=== PATIENT | female | born 2000 | race Caucasian/White ===

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

== ENCOUNTER 2019-01-09 18:38 | Emergency (ER) | payer OTHER ==
--- NOTE | 2019-01-09 19:13 | ED ---
General Adult HPI - General Chief complaint: Extremity Injury, Lower Stated complaint: Hip pain Time Seen by Provider: 01/09/19 18:51 Source: patient, RN notes reviewed Mode of arrival: ambulatory Limitations: no limitations - History of Present Illness Initial comments: 18-year-old female presents to the emergency department for a chief complaint of right hip pain times one day. Patient states she fell 4 days ago onto the right hip. Patient states this may have been what caused her pain. She denies any recent illnesses. Patient states it is somewhat painful to bear weight on the right hip. She states she did walk to school today. Denies any fevers or chills. Denies any other injuries. Denies any back pain. Denies any shooting pain down the right leg or decreased sensation in the right leg. No weakness noted in the bilateral lower extremities. No saddle anesthesia or bladder or bowel changes.Patient has no other complaints at this time including shortness of breath, chest pain, abdominal pain, nausea or vomiting, headache, or visual changes. - Related Data Home Medications Medication Instructions Recorded Confirmed No Known Home Medications 01/16/18 01/16/18 Allergies Allergy/AdvReac Type Severity Reaction Status Date / Time No Known Allergies Allergy Verified 01/09/19 18:46 Review of Systems ROS Statement: Those systems with pertinent positive or pertinent negative responses have been documented in the HPI. ROS Other: All systems not noted in ROS Statement are negative. Past Medical History Additional Past Medical History / Comment(s): thai hip disorder History of Any Multi-Drug Resistant Organisms: None Reported Past Surgical History: Orthopedic Surgery Additional Past Surgical History / Comment(s): thai hip surgery Past Psychological History: No Psychological Hx Reported Smoking Status: Never smoker Past Alcohol Use History: None Reported Past Drug Use History: None Reported General Exam Limitations: no limitations General appearance: alert, in no apparent distress Head exam: Present: atraumatic, normocephalic, normal inspection Eye exam: Present: normal appearance, PERRL, EOMI. Absent: scleral icterus, conjunctival injection, periorbital swelling ENT exam: Present: normal exam, mucous membranes moist Neck exam: Present: normal inspection, full ROM. Absent: tenderness, meningismus, lymphadenopathy Respiratory exam: Present: normal lung sounds bilaterally. Absent: respiratory distress, wheezes, rales, rhonchi, stridor Cardiovascular Exam: Present: regular rate, normal rhythm, normal heart sounds. Absent: systolic murmur, diastolic murmur, rubs, gallop, clicks Extremities exam: Present: normal capillary refill (Normal capillary refill less than 2 seconds and DP pulse 2+ in the right lower extremity), other ( Sensation intact in the right lower extremity). Absent: full ROM (Flexion both passive and active to 100 in the right hip. Extension to neutral position. Patient is able to externally rotate about 15. The rest of the right lower external he has full range of motion.), calf tenderness (No tenderness throughout the calf.) Course Vital Signs 01/09/19 18:44 Temperature 97.9 F Pulse Rate 81 Respiratory 16 Rate Blood Pressure 129/83 O2 Sat by Pulse 98 Oximetry Medical Decision Making - Medical Decision Making 18-year-old female presents to the emergency department for a chief complaint of right hip pain. This has been ongoing since yesterday. Patient did fall earlier this week. On exam patient is good range of motion of the right hip with 110 of flexion and intact external rotation. Neurovascular intact. X- ray shows old hip dysplasia without any acute abnormality. No change. Urine was ordered for hCG which was negative. Patient is on her period which accounts for the red blood cells. At this time no fevers, no recent illnesses. No concern for infected joint. Patient will follow up with primary care in 1- 2 days. She will return here if she has any worsening symptoms. Educated on rice therapy. - Lab Data Lab Results 01/09/19 01/09/19 Range/Units 19:04 19:04 Urine Color Light Yellow Urine Appearance Clear (Clear) Urine pH 6.0 (5.0-8.0) Ur Specific [place] 1.007 (1.001-1.035) Urine Protein Negative (Negative) Urine Glucose (UA) Negative (Negative) Urine Ketones Negative (Negative) Urine Blood Large H (Negative) Urine Nitrite Negative (Negative) Urine Bilirubin Negative (Negative) Urine Urobilinogen <2.0 (<2.0) mg/dL Ur Leukocyte Esterase Moderate H (Negative) Urine RBC >182 H (0-5) /hpf Ur Squamous Epith Cells 1 (0-4) /hpf Urine Mucus Rare H (None) /hpf Urine HCG, Qual Not Detected (Not Detectd) Disposition Clinical Impression: Hip pain Disposition: HOME SELF-CARE Condition: Good Instructions (If sedation given, give patient instructions): Hip Pain (ED) Additional Instructions: Please take Motrin or Tylenol for pain. Please follow-up with primary care or orthopedics in 1-2 days. Return here to the emergency department if you have any worsening symptoms. Is patient prescribed a controlled substance at d/c from ED?: No Referrals: David Velez MD [REFERRING] - 1-2 days Juancarlos Werner MD [STAFF PHYSICIAN] - 1-2 days Time of Disposition: 20:34
[2019-01-09] MEDS ORDERED: IBUPROFEN 600 MG TAB PO STA (19:23)
[2019-01-09 19:27] LABS: Appearance,Urine Clear (Clear); Bilirubin,Urine Negative (Negative); Blood,Urine Large (Negative); Color,Urine Light Yellow; Glucose,Urine (UA) Negative (Negative); Ketones,Urine Negative (Negative); Leukocyte Esterase,Urine Moderate (Negative); Mucus,Urine Rare /hpf; Nitrite,Urine Negative (Negative); Protein,Urine Negative (Negative); RBC,Urine >182 /hpf (0-5); Specific Gravity,Urine 1.007 (1.001-1.035); Squamous Epithelial Cell,Urine 1 /hpf (0-4); Urobilinogen,Urine <2.0 mg/dL (<2.0)
--- NOTE | 2019-01-09 19:52 | XR ---
Right hip 2 views. History hip pain. Comparison 01/16/2018. FINDINGS: There is a single screw in the right femoral head and neck. 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 Hip joint space is fairly normal. I see no fracture nor dislocation. Sacroiliac joint appears intact. IMPRESSION: Old hip dysplasia. No acute abnormality. No change.
[2019-01-09 20:53] VITALS: BP 135/68; PULSE 76; RESP 20; TEMP 98.1
== END 2019-01-09 20:45 | disposition home or self-care (01) ==
LOC: EC 18:38
DX: M25.551 Pain in right hip (principal); Z87.39 Personal history of other diseases of the musculoskeletal system and connective tissue; Z98.890 Other specified postprocedural states; W19.XXXA Unspecified fall, initial encounter
CPT/HCPCS: 73502; 81001; 81025; 99284

== ENCOUNTER 2019-01-29 18:01 | Emergency (ER) | payer OTHER ==
[2019-01-29 18:10] VITALS: BP 124/80; PULSE 93; RESP 18; TEMP 98.3
--- NOTE | 2019-01-29 19:28 | XR ---
EXAMINATION: XR chest 2V DATE AND TIME: 01/29/2019 7:05 PM CLINICAL INDICATION: PHH; Pain TECHNIQUE: Departmental protocol COMPARISON: None FINDINGS: The lungs are clear. The pleural spaces are negative. The cardiac silhouette is not enlarged. The remainder of the mediastinal silhouette is unremarkable. The skeletal structures and soft tissues are negative for acute findings. IMPRESSION: NO ACUTE PROCESS.
--- NOTE | 2019-01-29 19:59 | ED ---
General Adult HPI - General Chief complaint: Upper Respiratory Infection Stated complaint: Cough Time Seen by Provider: 01/29/19 18:13 Source: patient, RN notes reviewed, old records reviewed Mode of arrival: ambulatory Limitations: no limitations - History of Present Illness Initial comments: 18-year-old female patient no pertinent past medical history presents to ER with approximately 3 days of nonproductive cough. Patient denies any other symptoms. Patient denies vomiting diarrhea, fevers chills, chest pain, shortness breath, abdominal pain. Patient states that she is not . Systemic: Pt denies fatigue, myalgia, fever/chills, rash. Pt denies weakness, night sweats, weight loss. Neuro: Pt denies headache, visual disturbances, syncope or pre-syncope. HEENT: Pt denies ocular discharge or irritation, otalgia, rhinorrhea, pharyngitis or notable lymphadenopathy. Cardiopulmonary: Pt denies chest pain, SOB, heart palpitations, dyspnea on exertion. Abdominal/GI: Pt denies abdominal pain, n/v/d. : Pt denies dysuria, burning w/ urination, frequency/urgency. Denies new onset urinary or bowel incontinence. MSK: Pt denies myalgia, loss of strength or function in extremities. Neuro: Pt denies new onset weakness, paresthesias. - Related Data Previous Rx's Medication Instructions Recorded Albuterol Inhaler [Ventolin Hfa 1 - 2 puff INHALATION Q4-6H PRN #1 01/29/19 Inhaler] inhaler methylPREDNISolone Dose Pack 4 mg PO DIRECTED #21 package 01/29/19 [Medrol Dose Pack] Allergies Allergy/AdvReac Type Severity Reaction Status Date / Time No Known Allergies Allergy Verified 01/29/19 18:10 Review of Systems ROS Statement: Those systems with pertinent positive or pertinent negative responses have been documented in the HPI. ROS Other: All systems not noted in ROS Statement are negative. Past Medical History Additional Past Medical History / Comment(s): thai hip disorder History of Any Multi-Drug Resistant Organisms: None Reported Past Surgical History: Orthopedic Surgery Additional Past Surgical History / Comment(s): thai hip surgery Past Psychological History: No Psychological Hx Reported Smoking Status: Never smoker Past Alcohol Use History: None Reported Past Drug Use History: None Reported General Exam - General Exam Comments Initial Comments: Constitutional: NAD, AOX3, Pt has pleasant affect. HEENT: NC/AT, trachea midline, neck supple, no lymphadenopathy. Posterior pharynx non erythematous, without exudates. External ears appear normal, without discharge. Mucous membranes moist. Eyes PERRLA, EOM intact. There is no scleral icterus. No pallor noted. Cardiopulmonary: RRR, no murmurs, rubs or gallops, no JVD noted. Lungs CTAB in anterior and posterior bejarano. No peripheral edema. Abdominal exam: Abdomen soft and non-distended. Abdomen non-tender to palpation in all 4 quadrants. Bowel sounds active in LLQ. No hepatosplenomegaly. No ecchymosis Neuro: CN II-XII grossly intact. No nuchal rigidity. MSK: No posterior calf tenderness bilaterally, homans sign negative bilaterally. Posterior tibialis and radial pulse +2 bilaterally. Sensation intact in upper and lower extremities. Full active ROM in upper and lower extremities, 5/5 stregnth. Limitations: no limitations Course Vital Signs 01/29/19 18:06 Temperature 98.3 F Pulse Rate 93 Respiratory 18 Rate Blood Pressure 124/80 O2 Sat by Pulse 98 Oximetry Medical Decision Making - Medical Decision Making 18-year-old female patient no pertinent past medical history presents to ER with approximately 3 days of nonproductive cough. Patient denies any other symptoms. Patient denies vomiting diarrhea, fevers chills, chest pain, shortness breath, abdominal pain. Patient states that she is not . Patient vital signs stable, afebrile. Physical exam did not display acute pathology. Chest x-ray was negative. Pt diagnosed with bronchitis. Patient prescribed a Medrol Dosepak and an albuterol inhaler to use as needed. Patient to follow primary care provider in 2 days. Patient return to ER if symptoms worsen in anyway. Case discussed with Dr. Woo. Disposition Clinical Impression: Bronchitis Disposition: HOME SELF-CARE Condition: Stable Instructions (If sedation given, give patient instructions): Acute Bronchitis (ED) Additional Instructions: Patient to adhere to previously discussed treatment plan and will take medication(s) as directed. Patient to follow up with PCP in 1-2 days. Patient to return to ED if symptoms do not improve. Please follow-up with primary care provider in 1-2 days. Please return to ER if condition worsens in anyway Prescriptions: methylPREDNISolone Dose Pack [Medrol Dose Pack] 4 mg PO DIRECTED #21 package Albuterol Inhaler [Ventolin Hfa Inhaler] 1 - 2 puff INHALATION Q4-6H PRN #1 inhaler PRN Reason: Cough Is patient prescribed a controlled substance at d/c from ED?: No Referrals: Mingo Montoya MD [Primary Care Provider] - 1-2 days
== END 2019-01-29 20:05 | disposition home or self-care (01) ==
LOC: EC 18:01
DX: J40 Bronchitis, not specified as acute or chronic (principal)
CPT/HCPCS: 71046; 99283

== ENCOUNTER 2019-05-19 21:44 | Emergency (ER) | payer OTHER ==
[2019-05-19 21:48] VITALS: RESP 18; TEMP 98.5
--- NOTE | 2019-05-19 21:54 | ED ---
Lower Extremity Injury HPI - General Chief Complaint: Extremity Injury, Lower Stated Complaint: Foot injury Time Seen by Provider: 05/19/19 21:53 Source: patient Mode of arrival: ambulatory Limitations: no limitations - History of Present Illness Initial Comments: Elizabeth is an obese 18-year-old female presents the emergency department today for 6-8 weeks of right foot pain. Patient reports that over the past couple of months she's had pain in her right foot, she states that she is on her feet all day at work and her pain seems to be worsening. She states that she takes ibuprofen with minimal relief and occasionally applies ice to the foot which also only helps intermittently. Patient does admit that she does not wear very supportive shoes, she usually wears crocs to work and is on her feet for 8-12 hours wearing issues. She denies any specific injury. She reports that the pain is worse in the lateral side of her foot. She's not noticed any redness or skin changes. Patient also states that occasionally she feels like her foot is tingling or burning, patient states that there is a strong family history of diabetes and she is worried that she may be diabetic. - Related Data Home Medications Medication Instructions Recorded Confirmed Ibuprofen [Motrin Ib] 600 - 800 mg PO Q8H PRN 05/19/19 05/19/19 Allergies Allergy/AdvReac Type Severity Reaction Status Date / Time No Known Allergies Allergy Verified 05/19/19 22:07 Review of Systems ROS Statement: Those systems with pertinent positive or pertinent negative responses have been documented in the HPI. ROS Other: All systems not noted in ROS Statement are negative. Past Medical History Additional Past Medical History / Comment(s): thai hip disorder History of Any Multi-Drug Resistant Organisms: None Reported Past Surgical History: Orthopedic Surgery Additional Past Surgical History / Comment(s): thai hip surgery Past Psychological History: No Psychological Hx Reported Smoking Status: Current every day smoker Past Alcohol Use History: None Reported, Occasional Past Drug Use History: None Reported General Exam - General Exam Comments Initial Comments: Physical Exam GENERAL: Patient is well-developed and well-nourished. Patient is nontoxic and well-hydrated and is in no distress. HENT: Normocephalic, Atraumatic. EYES: PERRL, EOMI PULMONARY: Unlabored respirations. No audible rales rhonchi or wheezing was noted. CARDIOVASCULAR: There is a regular rate and rhythm without any murmurs gallops or rubs. ABDOMEN: Soft and nontender with normal bowel sounds. SKIN: Skin is clear with no lesions or rashes and otherwise unremarkable. : Deferred NEUROLOGIC: Patient is alert and oriented x3. Moving all extremities spontaneously MUSCULOSKELETAL: Normal extremities with adequate strength and full range of motion. No lower extremity swelling or edema. No calf tenderness. PSYCHIATRIC: Normal psychiatric evaluation Limitations: no limitations Course Vital Signs 05/19/19 21:45 Temperature 98.5 F Pulse Rate 80 Respiratory 18 Rate Blood Pressure 179/81 O2 Sat by Pulse 98 Oximetry Medical Decision Making - Medical Decision Making Patient was seen and evaluated history is obtained from the patient Jessica morbidly obese 18-year-old female with pain in her right foot for greater than a month after no injury. Patient concerned she may be experiencing neuropathy versus injury that she was unaware of. X-ray was normal patient's blood glucose is normal. I advised the patient that she needs to wear more supportive shoes. Supportive care was discussed all questions pertaining care were answered patient was discharged home in stable condition. - Lab Data Lab Results 05/19/19 Range/Units 22:52 POC Glucose (mg/dL) 94 (75-99) mg/dL POC Glu [employer] ID Mallory Shaver Disposition Clinical Impression: Foot pain, right Disposition: HOME SELF-CARE Condition: Stable Instructions (If sedation given, give patient instructions): Foot Contusion (ED) Is patient prescribed a controlled substance at d/c from ED?: No Referrals: Mingo Montoya MD [Primary Care Provider] - 1-2 days
--- NOTE | 2019-05-19 22:57 | XR ---
EXAM: XR Right Foot Complete, 3 or More Views CLINICAL HISTORY: ITS.REASON XR Reason: Pain x2mo TECHNIQUE: Frontal and lateral views of the right foot. COMPARISON: No relevant prior studies available. FINDINGS: Bones/joints: Unremarkable. No acute fracture. No dislocation. Soft tissues: Unremarkable. No radiopaque foreign body. IMPRESSION: No acute findings.
[2019-05-19 23:03] LABS: Glucose,Whole Blood 94 mg/dL (75-99)
[2019-05-19 23:30] VITALS: BP 116/66; PULSE 72
== END 2019-05-19 23:30 | disposition home or self-care (01) ==
LOC: EC 21:44
DX: M79.671 Pain in right foot (principal); F17.200 Nicotine dependence, unspecified, uncomplicated
CPT/HCPCS: 36415; 99283

== ENCOUNTER 2019-07-21 22:59 | Emergency (ER) | payer OTHER ==
[2019-07-21 23:08] VITALS: RESP 18
[2019-07-21] MEDS ORDERED: IBUPROFEN 600 MG TAB PO STA (23:55)
--- NOTE | 2019-07-22 00:08 | ED ---
General Adult HPI - General Chief complaint: Extremity Injury, Upper Stated complaint: shoulder pain Time Seen by Provider: 07/21/19 23:12 Source: patient Mode of arrival: ambulatory Limitations: no limitations - History of Present Illness Initial comments: 18-year-old female patient presents to the emergency department today for evaluation of left shoulder pain. Patient states that her bottle week ago she was coming out of a hot tub when she slipped and fell landing on her shoulder. Patient states that she'll was painful however did start to improve. States tonight she was playing softball when she dove for a ball manage on the shoulder again. Patient states she is not having pain to the left posterior shoulder. States it hurts with any type of movement. States she is having some shooting pain down the arm. Denies any numbness or tingling to the arm or hand. Denies any previous injury to the shoulder. She denies hitting her head or losing consciousness with any of the falls. Patient denies any headache, neck pain, back pain, chest pain, shortness of breath, dizziness, weakness, abdominal pain, nausea, vomiting, or difficulties with bowel movements or urination. - Related Data Home Medications Medication Instructions Recorded Confirmed Ibuprofen [Motrin Ib] 600 - 800 mg PO Q8H PRN 05/19/19 05/19/19 Previous Rx's Medication Instructions Recorded Ibuprofen [Motrin] 600 mg PO Q8HR PRN #30 tab 07/22/19 Allergies Allergy/AdvReac Type Severity Reaction Status Date / Time No Known Allergies Allergy Verified 07/21/19 23:08 Review of Systems ROS Statement: Those systems with pertinent positive or pertinent negative responses have been documented in the HPI. ROS Other: All systems not noted in ROS Statement are negative. 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 Vital signs upon presentation are temperature 98.6F, pulse 84, respirations 18, blood pressure 149/94, pulse ox 97% on room air.) Neck exam: Present: normal inspection, full ROM, other (Nontender, no step-off, no deformity to firm midline palpation of the posterior cervical spine. Full range of motion without pain or limitation.). Absent: tenderness, meningismus, lymphadenopathy Respiratory exam: Present: normal lung sounds bilaterally. Absent: respiratory distress, wheezes, rales, rhonchi, stridor Cardiovascular Exam: Present: regular rate, normal rhythm, normal heart sounds. Absent: systolic murmur, diastolic murmur, rubs, gallop, clicks Extremities exam: Present: normal inspection, full ROM, tenderness (Acromial Clavicular joint tenderness), normal capillary refill, other (Skin to the upper Chev[place] pink, warm, dry. Cap refills less than 3 seconds. Radial pulses are 2+ and equal bilaterally.). Absent: pedal edema, joint swelling, calf tenderness Neurological exam: Present: alert, oriented X3, CN II-XII intact Psychiatric exam: Present: normal affect, normal mood Skin exam: Present: warm, dry, intact, normal color. Absent: rash Course Vital Signs 07/21/19 23:05 Temperature 98.6 F Pulse Rate 84 Respiratory 18 Rate Blood Pressure 149/94 O2 Sat by Pulse 97 Oximetry Medical Decision Making - Medical Decision Making 18-year-old female patient presented to the emergency department today for evaluation of left shoulder injury. Physical examination is unremarkable. She has full range of motion, but reports increased pain with movement. Neurovascular status is intact. X-rays negative for any evidence for acute fracture, dislocation, or joint issues. She'll be discharged to follow-up with orthopedics if her symptoms aren't improved over the next 7 days per she is instructed follow up with her primary care physician for recheck in 1-2 days. Return parameters were discussed in detail. She verbalizes understanding and agrees with this plan. - Radiology Data Radiology results: report reviewed, image reviewed Two-view x-ray of the left shoulders obtained. Report is reviewed in its entirety. Impression by Dr. Freeman shows no acute findings. Disposition Clinical Impression: Left shoulder strain Disposition: HOME SELF-CARE Condition: Good Instructions (If sedation given, give patient instructions): Shoulder Pain (ED) Additional Instructions: Take medication as directed. Perform gentle range of motion to left shoulder. If symptoms persist. One week follow-up with orthopedics for further evaluation. Return to the emergency department immediately for any new, worsening, or concerning symptoms. Prescriptions: Ibuprofen [Motrin] 600 mg PO Q8HR PRN #30 tab PRN Reason: Pain Is patient prescribed a controlled substance at d/c from ED?: No Referrals: Mingo Montoya MD [Primary Care Provider] - 1-2 days Darshan Fulton DO [Medical Doctor] - 1-2 days Time of Disposition: 00:23
--- NOTE | 2019-07-22 00:18 | XR ---
EXAM: XR Left Shoulder Complete, 2 or More Views CLINICAL HISTORY: ITS.REASON XR Reason: Pain TECHNIQUE: Two or more views of the left shoulder. COMPARISON: No relevant prior studies available. FINDINGS: Bones/joints: No acute fracture. No dislocation. Soft tissues: Unremarkable. IMPRESSION: No acute findings.
[2019-07-22 00:59] VITALS: BP 120/60; PULSE 82; TEMP 98.1
== END 2019-07-22 00:50 | disposition home or self-care (01) ==
LOC: EC 22:59
DX: S46.912A Strain of unspecified muscle, fascia and tendon at shoulder and upper arm level, left arm, initial encounter (principal); F17.200 Nicotine dependence, unspecified, uncomplicated; W01.0XXA Fall on same level from slipping, tripping and stumbling without subsequent striking against object, initial encounter
CPT/HCPCS: 99283

== ENCOUNTER 2019-12-15 18:19 | Emergency (ER) | payer OTHER ==
--- NOTE | 2019-12-15 18:43 | ED ---
General Adult HPI - General Chief complaint: Upper Respiratory Infection Stated complaint: congestion/vomiting/chest pain Time Seen by Provider: 12/15/19 18:29 Source: patient Mode of arrival: ambulatory Limitations: no limitations - History of Present Illness Initial comments: Patient is a 19-year-old female no history of asthma presenting to the emergency department with a chief complaint of cough and upper respiratory symptoms. States the symptoms began about 2 weeks ago after she was exposed to her roommate who was diagnosed with influenza. Patient states the cough and chills at home but never actually feigned a temperature. States the cough is productive in nature with right sputum production. Also reports bilateral otalgia along with sinus congestion clear bilateral rhinorrhea. Denies labored breathing or wheezing. States that she uses a vaporizer. No shortness of breath or chest pain. Does report left shoulder injury over the summer. She previously had an evaluation in the ED for the shoulder. Patient states she had no issues after she was discharged for a shoulder evaluation, she only developed over the last few days. - Related Data Home Medications Medication Instructions Recorded Confirmed Ibuprofen [Motrin Ib] 600 - 800 mg PO Q8H PRN 05/19/19 05/19/19 Previous Rx's Medication Instructions Recorded Ibuprofen [Motrin] 600 mg PO Q8HR PRN #30 tab 07/22/19 Allergies Allergy/AdvReac Type Severity Reaction Status Date / Time No Known Allergies Allergy Verified 12/15/19 18:26 Review of Systems ROS Statement: Those systems with pertinent positive or pertinent negative responses have been documented in the HPI. ROS Other: All systems not noted in ROS Statement are negative. Past Medical History Additional Past Medical History / Comment(s): thai hip disorder History of Any Multi-Drug Resistant Organisms: None Reported Past Surgical History: Orthopedic Surgery Additional Past Surgical History / Comment(s): thai hip surgery Past Psychological History: No Psychological Hx Reported Smoking Status: Current every day smoker Past Alcohol Use History: None Reported, Occasional Past Drug Use History: Marijuana General Exam Limitations: no limitations General appearance: alert, in no apparent distress, obese Head exam: Present: atraumatic, normocephalic, normal inspection Eye exam: Present: normal appearance, PERRL, EOMI Pupils: Present: normal accommodation ENT exam: Present: normal exam, normal oropharynx (No sinus tenderness. Uvula midline. No tonsillar exudates, erythema or enlargement.), mucous membranes moist, TM's normal bilaterally (Fluid behind bilateral tympanic membranes.), normal external ear exam Neck exam: Present: normal inspection, full ROM. Absent: lymphadenopathy Respiratory exam: Present: normal lung sounds bilaterally. Absent: respiratory distress, wheezes Cardiovascular Exam: Present: regular rate, normal rhythm, normal heart sounds Extremities exam: Present: normal inspection, tenderness (Positive empty can test. Positive Melara has.), normal capillary refill, other (+2 ulnar and radial pulses bilaterally.). Absent: full ROM (Limited range of motion of the left upper extremity with abduction above 90.) Back exam: Present: normal inspection, full ROM Neurological exam: Present: alert, oriented X3 Psychiatric exam: Present: normal affect, normal mood Skin exam: Present: warm, dry, intact, normal color Course Vital Signs 12/15/19 12/15/19 18:24 18:49 Temperature 97.9 F Pulse Rate 95 Respiratory 16 20 Rate Blood Pressure 156/99 O2 Sat by Pulse 96 Oximetry Medical Decision Making - Medical Decision Making Patient is 19-year-old female presenting to the emergency department with chief complaint of cough and upper respiratory symptoms. Exam patient is not in any respiratory distress. She does have fluid behind bilateral tympanic members. Oropharyngeal exam unremarkable. Chest x-ray is unremarkable. Patient is also complaining of some left shoulder pain exam she does have positive Melara and empty can test. She did a injury in the summertime while playing softball. Rec ent x-ray was unremarkable. I suspect the patient has a rotator cuff injury never fully healed. Patient was to follow-up with control systems specialist. Vitals are stable. I counseled the patient for smoking cessation for greater than 3 minutes chest x-ray negative. Strict return parameters were thoroughly discussed with patient was worsening and agreeable. Patient will be discharged with a Medrol Dosepak. Case discussed with physician. - Lab Data Lab Results 12/15/19 Range/Units 18:45 Influenza Type A RNA Detected H (Not Detectd) Influenza Type B (PCR) Not Detected (Not Detectd) Disposition Clinical Impression: Bronchitis, Injury of left rotator cuff Disposition: HOME SELF-CARE Condition: Stable Instructions (If sedation given, give patient instructions): Rotator Cuff Injur y (ED), Acute Bronchitis (ED) Additional Instructions: Take prescribed medication as directed. Avoid smoking. Follow-up with control systems specialist. Return to emergency department if symptoms worsen. Is patient prescribed a controlled substance at d/c from ED?: No Referrals: Mingo Montoya MD [Primary Care Provider] - 1-2 days Harjinder Chairez DO [Doctor of Osteopathic Medicine] - 1-2 days Time of Disposition: 18:43
--- NOTE | 2019-12-15 19:23 | XR ---
EXAMINATION TYPE: XR chest 2V DATE OF EXAM: 12/15/2019 COMPARISON: 01/29/2019 HISTORY: Cough TECHNIQUE: 2 views FINDINGS: Heart and mediastinum are normal. Lungs are clear. Diaphragm is normal. Bony thorax is inta ct. IMPRESSION: Normal chest. No change.
[2019-12-15 19:54] VITALS: BP 124/91; PULSE 88; RESP 16; TEMP 98
== END 2019-12-15 19:45 | disposition home or self-care (01) ==
LOC: EC 18:19
DX: J40 Bronchitis, not specified as acute or chronic (principal); S46.002A Unspecified injury of muscle(s) and tendon(s) of the rotator cuff of left shoulder, initial encounter; F17.200 Nicotine dependence, unspecified, uncomplicated; Z71.6 Tobacco abuse counseling; X58.XXXA Exposure to other specified factors, initial encounter
CPT/HCPCS: 71046; 87502; 99283

== ENCOUNTER 2020-06-30 07:44 | Emergency (ER) | payer OTHER ==
--- NOTE | 2020-06-30 08:45 | XR ---
EXAMINATION TYPE: XR knee complete LT DATE OF EXAM: 06/30/2020 CLINICAL HISTORY: Pain and swelling after falling injury a few days ago. TECHNIQUE: Three views of the left knee are obtained. COMPARISON: None. FINDINGS: There is no acute fracture/dislocation evident in left knee. The tri-compartment joint sp aces appear within normal limits. The overlying soft tissue appears unremarkable. IMPRESSION: There is no acute fracture or dislocation in the left knee.
[2020-06-30 08:59] VITALS: BP 120/74; PULSE 77; RESP 16; TEMP 97.5
--- NOTE | 2020-06-30 09:04 | ED ---
Lower Extremity Injury HPI - General Chief Complaint: Extremity Injury, Lower Stated Complaint: LT knee pain Time Seen by Provider: 06/30/20 08:02 Source: patient Mode of arrival: ambulatory Limitations: no limitations - History of Present Illness Initial Comments: Patient is a 19-year-old female presenting to the emergency Department with complaints of left knee pain that has been going on for 2 weeks. Patient states she was playing softball 2 weeks ago when she was running to first base and hyperextended her left knee. Patient states it was sore for a little while and she started wearing a knee brace. Patient states then yesterday she stepped in a hole and fell down in her knee. She states her pain is getting worse and she is worried that she did something inside her knee. She does have history of left hip surgery, no left knee surgery. She has been using ice the knee, is able to ambulate and has still been working. She has no further complaints at this time. - Related Data Home Medications Medication Instructions Recorded Confirmed Aspirin EC [Ecotrin] 650 mg PO DAILY PRN 06/30/20 06/30/20 Omeprazole 20 mg PO BID 06/30/20 06/30/20 Allergies Allergy/AdvReac Type Severity Reaction Status Date / Time No Known Allergies Allergy Verified 06/30/20 09:04 Review of Systems ROS Statement: Those systems with pertinent positive or pertinent negative responses have been documented in the HPI. ROS Other: All systems not noted in ROS Statement are negative. Past Medical History Past Medical History: GERD/Reflux Additional Past Medical History / Comment(s): hip disorder History of Any Multi-Drug Resistant Organisms: None Reported Past Surgical History: Orthopedic Surgery Additional Past Surgical History / Comment(s): thai hip surgery Past Psychological History: No Psychological Hx Reported Smoking Status: Current every day smoker Past Alcohol Use History: Occasional Past Drug Use History: Marijuana General Exam - General Exam Comments Initial Comments: GENERAL: Patient is well-developed and well-nourished. Patient is nontoxic and in no acute distress. HEAD: Atraumatic, normocephalic. EYES: Pupils equal round and reactive to light, extraocular movements intact, sclera anicteric, conjunctiva are normal. Eyelids were unremarkable. ENT: TMs normal, nares patent, oropharynx clear without exudates. Moist mucous membranes. NECK: Normal range of motion, supple without lymphadenopathy or JVD. LUNGS: Unlabored respirations. Breath sounds clear to auscultation bilaterally and equal. No wheezes rales or rhonchi. HEART: Regular rate and rhythm without murmurs, rubs or gallops. ABDOMEN: Soft, nontender, normoactive bowel sounds. No guarding, no rebound. No masses appreciated. : Deferred MUSCULOSKELETAL: Patient has pain with palpation of the lateral joint line of the left knee, posterior aspect, she does have some mild swelling, decreased flexion secondary to pain. She has no rescue intact. NEUROLOGICAL: Patient is alert and oriented x 3. Normal speech, normal gait. PSYCH: Normal mood, normal affect. SKIN: Warm, Dry, normal turgor, no rashes or lesions noted. Limitations: no limitations Course Vital Signs 06/30/20 06/30/20 07:45 08:57 Temperature 97.9 F 97.5 F L Pulse Rate 62 77 Respiratory 18 16 Rate Blood Pressure 124/79 120/74 O2 Sat by Pulse 98 98 Oximetry Medical Decision Making - Medical Decision Making Patient is a 19-year-old female here for left knee pain 2 weeks. She does have some tenderness of the lateral joint line of the left knee, decreased range of motion secondary to pain, mild swelling. X-rays reveal no acute fractures dislocations. I discussed with patient that I suspect some sort of possible m eniscal injury or internal derangement. I recommended following up with orthopedics. She can continue with ibuprofen and ice for comfort. Patient is in agreement with this plan of care. She is stable for discharge. Disposition Clinical Impression: Left knee pain Disposition: HOME SELF-CARE Condition: Stable Instructions (If sedation given, give patient instructions): Knee Pain (ED) Additional Instructions: Please return to the Emergency Department if symptoms worsen or any other concerns. Continue with ibuprofen, ice. Follow up with orthopedics as discussed. Is patient prescribed a controlled substance at d/c from ED?: No Referrals: David Velez MD [Primary Care Provider] - 1-2 days Eric Leos MD [STAFF PHYSICIAN] - 1-2 days
== END 2020-06-30 09:07 | disposition home or self-care (01) ==
LOC: EC 07:44
DX: M25.562 Pain in left knee (principal); M79.89 Other specified soft tissue disorders; F17.200 Nicotine dependence, unspecified, uncomplicated; K21.9 Gastro-esophageal reflux disease without esophagitis; Z79.899 Other long term (current) drug therapy; Y93.64 Activity, baseball; Y92.89 Other specified places as the place of occurrence of the external cause; X50.0XXA Overexertion from strenuous movement or load, initial encounter; W18.40XA Slipping, tripping and stumbling without falling, unspecified, initial encounter; W18.42XA Slipping, tripping and stumbling without falling due to stepping into hole or opening, initial encounter
CPT/HCPCS: 99283

== ENCOUNTER 2020-08-17 08:15 | Day surgery (SDC) | payer OTHER ==
[2020-08-13 12:05] VITALS: BMI 39.8
[~2020-08-17 08:15] MED LIST: LACTATED RINGERS 1,000 ML IV SCH; LIDOCAINE 1% (10MG/ML) FOR IV START INTRADERMA PRN
[2020-08-17 08:38] VITALS: RESP 16
[2020-08-17 08:40] VITALS: TEMP 96.5
[2020-08-17] MEDS ORDERED: PROPOFOL 10 MG/ML 20 ML VIAL IV ONE (09:02)
[2020-08-17] MEDS ORDERED: MIDAZOLAM 2 MG/2 ML VIAL ONE (09:02)
[2020-08-17] MEDS ORDERED: LIDOCAINE 1% INJ 10MG/ML (20 ML MDV) ONE (09:02)
[2020-08-17] MEDS ORDERED: ONDANSETRON 4 MG/2 ML VIAL ONE (09:02)
--- NOTE | 2020-08-17 09:22 | P.PCN ---
Date of Procedure: 08/17/20 Description of Procedure: BRIEF HISTORY: Patient is a 19-year-old female presenting for outpatient EGD for evaluation of GERD. The patient has been on omeprazole since December. Continues to report reflux, nausea and unintentional weight loss. Patient does use marijuana. PROCEDURE PERFORMED: Esophagogastroduodenoscopy with biopsy. PREOPERATIVE DIAGNOSIS: GERD, nausea, unintentional weight loss. ESTIMATED BLOOD LOSS: Minimal. IV sedation per anesthesia. PROCEDURE: After informed consent was obtained, the patient was brought into the endoscopy unit. IV sedation was administered by Anesthesia under continuous monitoring. Initially the Olympus GIF-190 video endoscope was inserted into the mouth. Esophagus intubated without any difficulty. It was gradually advanced into the stomach and duodenum and carefully examined. The bulb and the second part of the duodenum appeared normal, with biopsies taken to rule out celiac sprue. The scope at this time was withdrawn to the stomach, adequately insufflated with air, and upon careful examination, mucosa of the antrum, body, cardia and the fundus appeared normal, except for some mild scattered erythema suggestive of mild gastritis with biopsies taken. The scope was then withdrawn into the esophagus. The GE junction was located at 39 cm from the incisors and biopsied. The esophagus appeared normal. There were no erosions or ulcerations seen and the patient tolerated the procedure well. IMPRESSION: 1. Mild gastritis. 2. Biopsies of the GE junction, antrum and body and duodenum. RECOMMENDATIONS: The findings of this examination were discussed with the patient .and her friend. Okay to resume diet. Okay to resume medications. Await pathology from biopsies. Continue PPI therapy. Would recommend complete abstinence from marijuana.
[2020-08-17 09:53] VITALS: BP 139/88; PULSE 66
== END 2020-08-17 10:05 | disposition home or self-care (01) ==
LOC: ORWHC2ENDO 08:15
PROVIDERS: ATTEND Internal Medicine
DX: K29.70 Gastritis, unspecified, without bleeding (principal); K21.9 Gastro-esophageal reflux disease without esophagitis; Z79.82 Long term (current) use of aspirin; Z98.890 Other specified postprocedural states
CPT/HCPCS: 81025; 43239; J2250; J2405; J2001; J2704; 88305

== ENCOUNTER 2021-05-10 23:03 | Emergency (ER) | payer OTHER ==
[2021-05-10 23:10] VITALS: BP 122/77; PULSE 110; RESP 18; TEMP 97.5
--- NOTE | 2021-05-10 23:54 | XR ---
EXAMINATION TYPE: XR foot complete LT DATE OF EXAM: 05/10/2021 COMPARISON: NONE HISTORY: Foot pain TECHNIQUE: 3 views FINDINGS: The metatarsals are intact. I see no fracture nor dislocation. Joint spaces are normal. IMPRESSION: Negative left foot exam. No fracture.
--- NOTE | 2021-05-10 23:55 | XR ---
EXAMINATION TYPE: XR ankle complete LT DATE OF EXAM: 05/10/2021 COMPARISON: NONE HISTORY: Pain TECHNIQUE: 3 views FINDINGS: There is soft tissue swelling over the lateral malleolus. I see no fracture nor dislocation . Joint spaces are fairly normal. IMPRESSION: Soft tissue swelling. No fracture.
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
== END 2021-05-11 00:49 | disposition home or self-care (01) ==
LOC: EC 23:03
DX: S93.402A Sprain of unspecified ligament of left ankle, initial encounter (principal); K21.9 Gastro-esophageal reflux disease without esophagitis; F17.200 Nicotine dependence, unspecified, uncomplicated; Z79.82 Long term (current) use of aspirin; X50.1XXA Overexertion from prolonged static or awkward postures, initial encounter
CPT/HCPCS: 99283